=== PATIENT | female | born 1985 | race Caucasian/White ===

== ENCOUNTER 2022-05-05 15:58 | Observation (INO) | payer MEDICAID, OTHER ==
[~2022-05-05] VITALS: Ht 157.5 cm; Wt 82.6 kg
[2022-05-05] MEDS ORDERED: PREN1TAB78 PO (20:48)
[2022-05-05] MEDS ORDERED: PANT40TA51 PO (20:48)
== END 2022-05-05 21:31 | disposition home or self-care (01) ==
LOC: 8 EST LDRP 15:58
PROVIDERS: ADMIT Obstetrics & Gynecology; ATTEND Obstetrics & Gynecology
DX: O62.9 Abnormality of forces of labor, unspecified (principal); Z3A.39 39 weeks gestation of pregnancy
CPT/HCPCS: 59025; 76815; 76818; G0378; 99281

== ENCOUNTER 2022-05-06 06:01 | Inpatient (IN) | payer OTHER ==
[~2022-05-06] VITALS: Ht 157.5 cm; Wt 83.5 kg
[~2022-05-06 06:01] MED LIST: PANT40TA51 PO; PREN1TAB78 PO
[2022-05-06] MEDS ORDERED: NALOXONE HCL 0.4 MG/ML 1ML VIAL IM PRN (08:30)
[2022-05-06] MEDS ORDERED: LIDOCAINE HCL 1% 10 MG/ML 10ML VIAL IJ SCH (08:30)
[2022-05-06] MEDS ORDERED: BUTORPHANOL TARTRATE 2 MG/ML VIAL IV PRN (08:30)
[2022-05-06] MEDS ORDERED: CARBOPROST TROMETHAMINE 250 MCG/ML AMPUL IM PRN (08:30)
[2022-05-06] MEDS ORDERED: METHYLERGONOVINE MALEATE 0.2 MG/ML IM PRN ×2 (08:30→13:00)
[2022-05-06] MEDS ORDERED: OXYTOCIN 30 UNITS/500ML NS PMX 500 ML IV SCH ×2 (08:30→13:00)
[2022-05-06 09:48] LABS: BASOPHILS % 0.2 % (0.0-2.0); EOSINOPHILS % 1.1 % (0.0-5.0); HEMATOCRIT. 38.7 % (36.0-48.0); HEMOGLOBIN. 12.6 g/dL (12.0-16.0); LYMPHOCYTES % 10.1 % (20.0-50.0); MEAN CORPUSCULAR HEMOGLOBIN 26.4 pg (28.0-32.0); MEAN CORPUSCULAR VOLUME 80.9 fL (81.0-99.0); MEAN PLATELET VOLUME 9.7 fl (7.4-10.4); MONOCYTES % 8.2 % (2.0-8.0); NEUTROPHILS % 80.4 % (40.0-76.0); PLATELET 294 x1000/uL (130-400); RED BLOOD CELL COUNT 4.78 mill/uL (4.2-5.4); RED CELL DISTRIBUTION WIDTH 15.6 % (11.6-14.6)
[2022-05-06 09:50] LABS: CLARITY URINE CLEAR (CLEAR); COLOR URINE YELLOW (YELLOW); KETONES URINE NEGATIVE (NEGATIVE); LEUKOCYTE ESTERASE URINE 1+ (NEGATIVE); NITRITE URINE NEGATIVE (NEGATIVE); OCCULT BLOOD URINE 3+ (NEGATIVE); PH URINE 6.5 (4.5-8.0); PROTEIN URINE NEGATIVE (NEGATIVE); SPECIFIC GRAVITY URINE 1.007 (1.005-1.030); UROBILINOGEN URINE 0.2 E.U./dL (0.2-1.0)
[2022-05-06] MEDS ORDERED: ROPIVACAINE HCL/PF EPIDURAL 200 ML EP SCH (10:00)
[2022-05-06] MEDS ORDERED: ROPIVACAINE HCL/PF EPIDURAL 200 ML EPI SCH (10:00)
[2022-05-06] MEDS ORDERED: FENTANYL CITRATE/PF 50MCG/ML 2ML VIAL ONE (10:10)
[2022-05-06] MEDS: LACTATED RINGERS 1,000 ML IV SCH ×3 (10:12→11:04)
[2022-05-06 10:23] LABS: *AMPHETAMINES SCREEN URINE NEGATIVE (NEGATIVE); *BARBITURATES SCREEN URINE NEGATIVE (NEGATIVE); *BENZODIAZEPINES SCREEN URINE NEGATIVE (NEGATIVE); *COCAINE SCREEN URINE NEGATIVE (NEGATIVE); CANNABINOID URINE SCREEN NEGATIVE (NEGATIVE); METHADONE URINE SCREEN NEGATIVE (NEGATIVE); OPIATES URINE SCREEN NEGATIVE (NEGATIVE); PHENCYCLIDINE URINE SCREEN NEGATIVE (NEGATIVE)
[2022-05-06 10:47] LABS: INR 0.9; PARTIAL THROMBOPLASTIN TIME 27.5 sec (23.4-31.0); PROTHROMBIN TIME 9.7 sec (9.6-11.0)
[2022-05-06 11:55] LABS: HEPATITIS B SURFACE ANTIGEN NEGATIVE
[2022-05-06] MEDS ORDERED: IBUPROFEN 800MG TABLET PO PRN (13:00)
[2022-05-06] MEDS ORDERED: BENZOCAINE/LANOLIN/ALOE VERA SPRAY TOP PRN (13:00)
[2022-05-06] MEDS ORDERED: IBUPROFEN 400MG TABLET PO PRN (13:00)
[2022-05-06] MEDS ORDERED: HEMORRHOIDAL SUPP PR PRN (13:00)
[2022-05-06] MEDS ORDERED: DIPHENHYDRAMINE 25MG CAPSULE PO PRN (13:00)
[2022-05-06] MEDS ORDERED: RHO(D) IMMUNE GLOBULIN 300 MCG/SYR IM PRN (13:00)
[2022-05-06] MEDS ORDERED: BISACODYL 10MG SUPP PR PRN (13:00)
[2022-05-06] MEDS ORDERED: GLYCERIN/WITCH HAZEL LEAF MEDICATED PAD TOP PRN (13:00)
[2022-05-06] MEDS ORDERED: MAGNESIUM 2 G PREMIX 50 ML IV NR (14:30)
[2022-05-06 15:00] VITALS: BP 122/62
[2022-05-06] MEDS: LANOLIN OINT 7GM TUBE TOP PRN ×2 (17:20→21:25)
[2022-05-06 17:30] VITALS: BP 105/54
[2022-05-06 19:30] VITALS: BP 123/64
[2022-05-06] MEDS: DOCUSATE SODIUM 100MG CAPSULE PO SCH (21:24)
[2022-05-06] MEDS ORDERED: MEASLES,MUMPS&RUBELLA VACCINE 1 VIAL SUBCUT ONE (21:45)
[2022-05-07 04:00] VITALS: BP 110/58
[2022-05-07 07:31] LABS: BASOPHILS % 0.1 % (0.0-2.0); HEMATOCRIT. 32.4 % (36.0-48.0); HEMOGLOBIN. 10.7 g/dL (12.0-16.0); LYMPHOCYTES % 12.8 % (20.0-50.0); MEAN CORPUSCULAR HEMOGLOBIN 27.1 pg (28.0-32.0); MEAN CORPUSCULAR VOLUME 82.1 fL (81.0-99.0); MEAN PLATELET VOLUME 9.5 fl (7.4-10.4); MONOCYTES % 8.6 % (2.0-8.0); NEUTROPHILS % 77.5 % (40.0-76.0); PLATELET 242 x1000/uL (130-400); RED BLOOD CELL COUNT 3.95 mill/uL (4.2-5.4); RED CELL DISTRIBUTION WIDTH 15.4 % (11.6-14.6)
[2022-05-07 08:00] VITALS: BP 117/69
[2022-05-07] MEDS ORDERED: PRENATAL VIT/FE FUMARATE/FA TABLET PO SCH (09:00)
[2022-05-07] MEDS: FERROUS SULFATE 325MG TABLET PO SCH ×2 (09:12→19:13)
[2022-05-07] MEDS ORDERED: OXYCODONE HCL/ACETAMINOPHEN 5/325MG TABLET PO PRN (13:00)
[2022-05-07 16:00] VITALS: BP 121/51
[2022-05-07 19:00] VITALS: BP 122/72
[2022-05-07] MEDS: DOCUSATE SODIUM 100MG CAPSULE PO SCH (19:13)
[2022-05-08 03:30] VITALS: BP 112/70
[2022-05-08 08:00] VITALS: BP 120/56
== END 2022-05-08 12:35 | disposition home or self-care (01) | DRG 560 ==
LOC: 8 EST LDRP 06:01 → OBSVTOIN 06:01 → 8EST 13:59
PROVIDERS: ADMIT Obstetrics & Gynecology; ATTEND Obstetrics & Gynecology
PROC: 10E0XZZ Delivery of Products of Conception, External Approach (ICD-10-PCS; principal; 2022-05-06)
PROC: 3E0R3BZ Introduction of Anesthetic Agent into Spinal Canal, Percutaneous Approach (ICD-10-PCS; 2022-05-06)
PROC: 00HU33Z Insertion of Infusion Device into Spinal Canal, Percutaneous Approach (ICD-10-PCS; 2022-05-06)
DX: O69.1XX0 Labor and delivery complicated by cord around neck, with compression, not applicable or unspecified (principal); Z37.0 Single live birth; D62 Acute posthemorrhagic anemia; O99.12 Other diseases of the blood and blood-forming organs and certain disorders involving the immune mechanism complicating childbirth; Z20.822 Contact with and (suspected) exposure to COVID-19; O99.214 Obesity complicating childbirth; O98.52 Other viral diseases complicating childbirth; O99.02 Anemia complicating childbirth; D57.3 Sickle-cell trait; D72.829 Elevated white blood cell count, unspecified; Z3A.38 38 weeks gestation of pregnancy; Z91.410 Personal history of adult physical and sexual abuse
CPT/HCPCS: 36415; 80305; 81003; 85025; 86592; 86703; 86762; 86850; 86900; 87340; 87426; 90707; 99281; G0378; J0595; J2795; J3010; J3475; J3490; J7120; A4315; J2590

== ENCOUNTER 2022-10-18 10:02 | Emergency (ER) | payer OTHER ==
[~2022-10-18] VITALS: Ht 157.5 cm; Wt 77.0 kg
[2022-10-18 10:06] VITALS: BP 141/79
[2022-10-18] MEDS ORDERED: KETOROLAC 30MG/ML VIAL IM ONE (11:00)
[2022-10-18] MEDS ORDERED: LIDOCAINE 5% PATCH TOP SCH (11:00)
[2022-10-18] MEDS ORDERED: CYCLOBENZAPRINE 10MG TABLET PO ONE (11:00)
[2022-10-18] MEDS ORDERED: NAPR-681 MT (14:53)
[2022-10-18] MEDS ORDERED: ACET-2708 MT (14:53)
[2022-10-18] MEDS ORDERED: CYCL5TAB MT (14:54)
[2022-10-18] MEDS ORDERED: LIDO700A15 TP (14:54)
== END 2022-10-18 15:05 | disposition home or self-care (01) ==
LOC: ER 10:02
DX: M54.59 Other low back pain (principal)
CPT/HCPCS: 81025; 96372; 99283; J1885; Z7610